=== PATIENT | female | born 1995 | race American Indian/Alaskan Native ===

== ENCOUNTER 2016-08-20 12:30 | Inpatient (IN) | payer MEDICAID ==
[2016-08-20] MEDS ORDERED: PITOCin/NS 20 UNIT/1000ML DRIP 1,000 ML IV ONE (12:48)
[2016-08-20] MEDS ORDERED: LACTATED RINGERS 1,000 ML IV SCH (14:00)
[2016-08-20 14:06] LABS: Hematocrit 32.8 % (30.3-42.9); Hemoglobin 10.9 gm/dl (10.1-14.3); Mean Corpuscular HGB Conc 33 % (30-34); Mean Corpuscular Hemoglobin 32 pg (28-32); Mean Corpuscular Volume 95 fl (79-97); Platelet Count 214 K/mm3 (140-440); Red Blood Count 3.43 M/mm3 (3.65-5.03); Red Cell Distribution Width 12.9 % (13.2-15.2); White Blood Count 15.2 K/mm3 (4.5-11.0)
--- NOTE | 2016-08-20 14:21 | History and Physical Report ---
History of Present Illness Date of examination: 08/20/16 Date of admission: 08/20/16 12:48 History of present illness: Patient's drop in patient is 38 weeks and comes in with complaints of contractions for 6-7 hours and exam in triage completely dilated. Patient receiving care in [facility] with Dr. Badillo Past History Past Medical History: no pertinent history Past Surgical History: no surgical history [employer] History: chlamydia Family/Genetic History: other (first fetus with Merino syndrome) Social history: single - Obstetrical History Expected Date of Delivery: 08/30/16 Actual Gestation: 38 Week(s) 5 Day(s) : 2 Para: 1 Hx # Term Pregnancies: 0 Number of Pregnancies: 1 Spontaneous Abortions: 0 Induced : 0 Number of Living Children: 0 Medications and Allergies Allergies Allergy/AdvReac Type Severity Reaction Status Date / Time No Known Allergies Allergy Unverified 08/20/16 14:11 Home Medications Medication Instructions Recorded Confirmed Last Taken Type No Known Home Medications [No 08/20/16 08/20/16 Unknown History Reported Home Medications] Active Meds: Active Medications Lactated Ringer's (Lactated Ringers) 1,000 mls @ 125 mls/hr IV DIRECT TIN - Vital Signs Vital signs: Vital Signs Pulse Pulse Ox 75 100 08/20/16 13:03 08/20/16 13:03 Temp Pulse Resp BP Pulse Ox 74 119/78 100 08/20/16 14:14 08/20/16 14:14 08/20/16 14:01 - Physical Exam Breasts: Positive: deferred Abdomen: Positive: normal appearance Genitourinary (Female): Positive: normal external genitalia Vagina: Positive: normal moisture - Obstetrical FHR: category 1 Cervical Dilatation: 10 Cervical Effacement Percentage: 100 station: +1 Uterine Contraction Pattern: Regular Results Result Diagrams: 08/21/16 01:30 Abnormal lab results 08/20/16 Range/Units 13:30 WBC 15.2 H (4.5-11.0) K/mm3 RBC 3.43 L (3.65-5.03) M/mm3 RDW 12.9 L (13.2-15.2) % All other labs normal. Assessment and Plan - Patient Problems (1) Active labor at term Current Visit: Yes Status: Acute Plan to address problem: Admitted vaginal delivery soon. Normal labor and delivery protocol
--- NOTE | 2016-08-20 14:26 | Procedure Note ---
OB Delivery Note - Delivery Date of Delivery: 08/20/16 Surgeon: TOM PANDEY Estimated blood loss: 300cc - Vaginal Delivery position: OA Delivery induction: none Delivery monitor: external FHT, external uterine Route of delivery: Delivery placenta: spontaneous Episiotomy: none Delivery laceration: none Anesthesia: none - Infant A at 1 minute: 8 at 5 minutes: 9 Infant Gender: Female (6lb 3oz)
[2016-08-20] MEDS ORDERED: SODIUM CHLORIDE FLUSH SYRINGE 10 ML IV NR (15:48)
[2016-08-20] MEDS ORDERED: BENADRYL PO PRN (15:48)
[2016-08-20] MEDS ORDERED: DERMOPLAST TP PRN (15:48)
[2016-08-20] MEDS ORDERED: MILK OF MAGNESIA PO PRN (15:48)
[2016-08-20] MEDS ORDERED: PHENERGAN PO PRN (15:48)
[2016-08-20] MEDS ORDERED: TUCKS PAD TP PRN (15:48)
[2016-08-20] MEDS ORDERED: DULCOLAX PR PRN (15:48)
[2016-08-20] MEDS ORDERED: LANSINOH TP PRN (15:48)
[2016-08-20] MEDS ORDERED: TYLENOL PO PRN (15:48)
[2016-08-20] MEDS ORDERED: MOTRIN PO ONE (15:55)
[2016-08-20] MEDS: NORCO 5/325 PO PRN ×2 (18:19→21:57)
[2016-08-20] MEDS: MOTRIN PO SCH ×2 (19:15→23:04)
[2016-08-20] MEDS: COLACE PO SCH (21:57)
[2016-08-21 01:54] LABS: Hematocrit 29.9 % (30.3-42.9)
[2016-08-21] MEDS: MOTRIN PO SCH ×3 (05:00→18:23)
--- NOTE | 2016-08-21 08:11 | Progress Note ---
Assessment and Plan Patient doing well, no complaints; Lochia scant, VSSAF, H&H stable 06/16.9. Plan for d/c home as soon as is able to be d/c'd. Pt states she will f/u with Dr. Bass. - Patient Problems (1) (normal spontaneous vaginal delivery) Current Visit: Yes Status: Acute Subjective - Subjective Date of service: 08/21/16 Principal diagnosis: day #1 s/p Patient reports: appetite normal, voiding normally, pain well controlled, ambulating normally, no dizzy ambulation, no nauseated : doing well, nursing well Objective - Vital Signs Latest vital signs: Vital Signs Temp Pulse Pulse Resp BP BP Pulse Ox 08/21/16 04:00 98.8 F 79 14 105/58 08/21/16 00:15 98.4 F 77 16 113/65 08/20/16 21:57 18 08/20/16 19:15 99.1 F 93 H 16 114/62 08/20/16 15:42 99.0 F 72 18 110/60 08/20/16 14:29 71 118/73 08/20/16 14:25 81 112/75 08/20/16 14:14 74 119/78 08/20/16 14:04 66 123/70 08/20/16 14:01 72 100 08/20/16 13:59 62 123/63 08/20/16 13:56 60 100 08/20/16 13:55 65 120/69 08/20/16 13:51 67 100 08/20/16 13:46 66 99 08/20/16 13:42 70 127/76 08/20/16 13:41 68 99 08/20/16 13:18 70 100 08/20/16 13:13 70 99 08/20/16 13:08 70 100 08/20/16 13:03 75 100 Intake and Output 08/20/16 08/21/16 08/21/16 22:59 06:59 14:59 Intake Total 1000 360 Output Total 650 400 Balance 350 -40 Intake: IV 400 PITOCin/NS 20 UNIT/1000ML 400 DRIP 1,000 ML As IV .STK -MED ONE Rx#:[id number] Oral 600 360 Output: Urine 650 400 Void 650 400 Other: Total, Intake Amount 360 360 Total, Output Amount 300 400 Voiding Method Toilet # Voids Void 1 - Exam Breasts: Present: normal, Cardiovascular: Present: Regular rate Lungs: Present: Clear to auscultation, Normal air movement Abdomen: Present: normal appearance, soft Vulva: both: normal Uterus: Present: normal, firm, fundal height at umbilicus Extremities: Present: normal - Labs Labs: Abnormal lab results 08/20/16 08/21/16 Range/Units 13:30 01:30 WBC 15.2 H (4.5-11.0) K/mm3 RBC 3.43 L (3.65-5.03) M/mm3 Hgb 10.0 L (10.1-14.3) gm/dl Hct 29.9 L (30.3-42.9) % RDW 12.9 L (13.2-15.2) %
--- NOTE | 2016-08-21 08:14 | Discharge Summary ---
Providers - Providers Date of Admission: 08/20/16 12:48 Date of discharge: 08/21/16 (desires d/c home [facility]) Attending physician: TOM PANDEY Primary care physician: TOM PANDEY Hospitalization Reason for admission: active labor Delivery: Episiotomy: none Laceration: none Other procedures: none complications: none Discharge diagnosis: IUP at term delivered baby: female Hospital course: uncomplicated vaginal delivery Condition at discharge: Good Disposition: DISCHARGED TO HOME OR SELFCARE - Discharge Diagnoses (1) (normal spontaneous vaginal delivery) Status: Acute Plan - Provider Discharge Summary Activity: routine, no sex for 6 weeks, no heavy lifting 4 weeks, no strenuous exercise Diet: routine Instructions: routine Additional instructions: [] Smoking cessation referral if applicable(refer to patient education folder for contact #) [] Refer to [facility] Booklet Call your doctor immediately for: * Fever > 100.5 * Heavy vaginal bleeding ( >1 pad per hour) * Severe persistent headache * Shortness of breath * Reddened, hot, painful area to leg or breast * Drainage or odor from incision. * Keep incision clean and dry at all times and follow doctor's instructions regarding bathing/showering - Follow up plan Follow up: TOM PANDEY MD [Primary Care Provider] - 09/18/16 (Congratulations! Please call [phone] to schedule appointment with our office if you are unable to follow up with your own provider. Call for any questions or concerns. )
[2016-08-21] MEDS: PRENATAL VITAMIN PO SCH (09:38)
[2016-08-21] MEDS: COLACE PO SCH ×2 (09:38→22:09)
[2016-08-21] MEDS: NORCO 5/325 PO PRN (18:24)
[2016-08-22] MEDS: MOTRIN PO SCH ×2 (01:30→11:03)
--- NOTE | 2016-08-22 07:48 | Event Note ---
Date: 08/22/16 (pt agrees to d/c today) pt asking if she can come to our office for PP care. Her OB declines to see her. Pt has number and was instructed to call for appt.
[2016-08-22] MEDS: PRENATAL VITAMIN PO SCH (09:49)
[2016-08-22] MEDS: NORCO 5/325 PO PRN (11:02)
[2016-08-22 14:02] VITALS: BP 110/64
== END 2016-08-22 16:29 | disposition home or self-care (01) | DRG 775 ==
LOC: TRG 12:30 → LD 12:48 → OB 15:08
PROVIDERS: ADMIT Obstetrics & Gynecology; ATTEND Obstetrics & Gynecology
PROC: 10E0XZZ Delivery of Products of Conception, External Approach (ICD-10-PCS; principal; 2016-08-20)
DX: O80 Encounter for full-term uncomplicated delivery (principal); Z37.0 Single live birth; Z3A.38 38 weeks gestation of pregnancy; Z86.19 Personal history of other infectious and parasitic diseases
CPT/HCPCS: 36415; 85014; 85018; 85027; 86850; 86900; 86901; 99211; A6250; G0463; J2590